=== PATIENT | female | born 1980 | race Caucasian/White ===

== ENCOUNTER 2022-08-08 12:11 | Outpatient (REF) | payer OTHER, SELFPAY ==
--- NOTE | ~2022-08-08 | XR_ITS ---
EXAMINATION: XR ANKLE, RIGHT CLINICAL INFORMATION: Right ankle pain COMPARISON: 04/21/2014 TECHNIQUE: AP, lateral, and mortise views of the right ankle. FINDINGS: Plate and screw fixation is seen of the distal fibula. A single screw is bridging from the distal fibula into the tibia. No evidence of hardware complications or loosening. There is an old healed fracture of the distal fibula. Ankle mortise is symmetric. Soft tissues are unremarkable. XR/XR ankle RT min 3V IMPRESSION: No acute process
== END 2022-08-08 12:12 | disposition home or self-care (01) ==
LOC: HO.HOSX 12:11
PROVIDERS: Visit Provider Orthopaedic Surgery
DX: M25.571 Pain in right ankle and joints of right foot (principal); M21.41 Flat foot [pes planus] (acquired), right foot; Z87.81 Personal history of (healed) traumatic fracture
CPT/HCPCS: 73610